=== PATIENT | male | born 1960 | race Caucasian/White ===

== ENCOUNTER → 2025-02-27 | Outpatient (CLI) | payer MEDICARE, SELFPAY ==
--- NOTE | 2025-02-27 13:32 | MRI_ITS ---
PROCEDURE: BRAIN W/WO CONTRAST 02/27/2025 REASON FOR EXAM: SENSORINEURAL HEARING LOSS,RT EAR TECHNIQUE: BRAIN W/WO CONTRAST, with attention to the internal auditory canals. Multiplanar and multisequence images were obtained. CONTRAST: Clariscan VOLUME: 20 mL intravenous. COMPARISON: None provided. 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 No other focus of diffusion restriction is seen. Mild solitary focus of bright signal on T2 weighted FLAIR imaging is seen of the left centrum semiovale. This is of uncertain significance. No other focus of abnormal brain signal is seen. No orbital pathology is noted Internal auditory canals appear symmetric and within the normal range. No mass or area of abnormal enhancement is seen. Ventricles: Normal. Sinuses: Clear. Mastoids: Clear. Other: Following intravenous contrast administration, no area of abnormal postcontrast enhancement is noted MRI/Brain W/WO Contrast IMPRESSION: Internal auditory canals appear within the normal range. No mass or area of ab normal enhancement is seen. Additional findings as described. Reading Location: [place] [id number]
== END | disposition home or self-care (01) ==
PROVIDERS: PCP Family Medicine
DX: H90.3 Sensorineural hearing loss, bilateral (principal)
CPT/HCPCS: 70553; A9575